=== PATIENT | female | born 1990 | race Caucasian/White ===

== ENCOUNTER 2017-04-24 18:12 | Emergency (ER) | payer OTHER ==
[~2017-04-24] VITALS: Ht 170.2 cm; Wt 53.6 kg
[2017-04-24 18:33] VITALS: TEMP 37.2; Ht 170.2 cm; Wt 53.6 kg
[2017-04-24] MEDS ORDERED: SODIUM CHLORIDE 0.9% 1000ML 1,000 ML IV ONE (19:45)
[2017-04-24] MEDS ORDERED: ONDANSETRON INJ 2 MG/ML 2 ML VIAL IV STA (19:45)
[2017-04-24] MEDS ORDERED: MoRPHine SULFATE 4 MG/ML 1 ML CARP\\VIAL IV STA (19:45)
--- NOTE | 2017-04-24 19:52 | EMERGENCY ROOM VISIT NOTE ---
History First contact with patient: 19:37 Chief Complaint: NAUSEA Stated Complaint: THROWING UP, OVARIES HURT, FEVER Nursing Triage Summary: Pt c/o vomiting since last night. Bilateral lower abdominal pain since this morning. LMP Mar 19. Hx Ovarian cysts. Denies urinary symptoms. Cough x a few days. Denies diarrhea. Nauseous, so not eating, drinking the last few days. History of Present Illness The patient is a 27 year old female who presents to the Emergency Room with complaints of lower abdominal pain that she describes as a sharp, stabbing sensation that started yesterday. She is also had nausea and vomiting. She has thrown up approximately 4 times. She also feels like she is running a fever. She did not take her temperature to home. She has been hot and then chilled. The patient has a history of ovarian cysts. She says that this pain feels similar. She denies any diarrhea. She is uncertain of her last bowel movement. She denies any sick contacts. She is currently sexually active with one partner. Last menstrual. Was March 19. Review of Systems 10 system review performed and negative unless noted in HPI or below Past Medical/Surgical History Otherwise healthy Social History Smoking Status: Never Smoker Housing Status: lives with roommate Occupation Status: [employer] Current/Historical Medications Scheduled Cetirizine (Zyrtec), 10 MG PO DAILY Ondasetron Odt (Zofran Odt), 4 MG SL Q6H Scheduled PRN Acetaminophen (Tylenol), 1,000 MG PO Q6 PRN for Headache or Pain Physical Exam Vital Signs Date Time Temp Pulse Resp B/P (MAP) Pulse Ox O2 Delivery O2 Flow Rate FiO2 04/24/17 22:51 98 16 95/75 99 04/24/17 22:08 98 14 98/57 99 Room Air 04/24/17 18:33 37.2 107 24 109/74 100 Room Air Physical Exam VITALS: Vitals are noted on the nurse's note and reviewed by myself. Vital signs stable. GENERAL: 27-year-old female, anxious and tearful. SKIN: The skin was without rashes, erythema, edema, or bruising. HEAD: Normocephalic atraumatic. MOUTH: Mucous membranes slightly dry NECK: Supple without nuchal rigidity. No lymphadenopathy. Cervical spine is nontender. No JVD. HEART: Regular rate and rhythm without murmurs gallops or rubs. LUNGS: Clear to auscultation bilaterally without wheezes, rales or rhonchi. No accessory muscle use. ABDOMEN: Positive bowel sounds x 4.Soft, mild tenderness to palpation in the left lower quadrant, without organomegaly. No guarding or rebound tenderness. MUSCULOSKELETAL: No muscle atrophy, erythema, or edema noted. Strength 5/5 throughout. NEURO: Patient was alert and oriented to person place and time. Normal sensation to touch. No focal neurological deficits. Medical Decision & Procedures ER Provider Diagnostic Interpretation: Pelvic ultrasound IMPRESSION: 1. Normal uterus and ovaries. 2. Small amount of pelvic free fluid which is likely physiologic. Chest/abdominal x-rays IMPRESSION: No acute cardiopulmonary process. No evidence for bowel obstruction. Small amount of well-formed stool within the colon. Laboratory Results 04/24/17 20:00 Red Blood Count 4.24, Mean Corpuscular Volume 87.7, Mean Corpuscular Hemoglobin 30.2, Mean Corpuscular Hemoglobin Concent 34.4, Mean Platelet Volume 9.9, Neutrophils (%) (Auto) 90.8, Lymphocytes (%) (Auto) 5.1, Monocytes (%) (Auto) 3.7, Eosinophils (%) (Auto) 0.0, Basophils (%) (Auto) 0.2, Neutrophils # (Auto) 4.67, Lymphocytes # (Auto) 0.26, Monocytes # (Auto) 0.19, Eosinophils # (Auto) 0.00, Basophils # (Auto) 0.01 04/24/17 20:00 Test 04/24/17 20:00 04/24/17 21:35 White Blood Count 5.14 K/uL (4.8-10.8) Red Blood Count 4.24 M/uL (4.2-5.4) Hemoglobin 12.8 g/dL (12.0-16.0) Hematocrit 37.2 % (37-47) Mean Corpuscular Volume 87.7 fL (80-100) Mean Corpuscular Hemoglobin 30.2 pg (25-34) Mean Corpuscular Hemoglobin Concent 34.4 g/dl (32-36) Platelet Count 143 K/uL (130-400) Mean Platelet Volume 9.9 fL (7.4-10.4) Neutrophils (%) (Auto) 90.8 % Lymphocytes (%) (Auto) 5.1 % Monocytes (%) (Auto) 3.7 % Eosinophils (%) (Auto) 0.0 % Basophils (%) (Auto) 0.2 % Neutrophils # (Auto) 4.67 K/uL (1.4-6.5) Lymphocytes # (Auto) 0.26 K/uL (1.2-3.4) Monocytes # (Auto) 0.19 K/uL (0.11-0.59) Eosinophils # (Auto) 0.00 K/uL (0-0.5) Basophils # (Auto) 0.01 K/uL (0-0.2) RDW Standard Deviation 41.4 fL (36.4-46.3) RDW Coefficient of Variation 12.8 % (11.5-14.5) Immature Granulocyte % (Auto) 0.2 % Immature Granulocyte # (Auto) 0.01 K/uL (0.00-0.02) Anion Gap 6.0 mmol/L (3-11) Est Creatinine Clear Calc Drug Dose 93.7 ml/min Estimated GFR () 123.5 Estimated GFR (Non- 106.6 BUN/Creatinine Ratio 10.1 (10-20) Calcium Level 8.6 mg/dl (8.5-10.1) Total Bilirubin 0.4 mg/dl (0.2-1) Aspartate Amino Transf (AST/SGOT) 17 U/L (15-37) Alanine Aminotransferase (ALT/SGPT) 20 U/L (12-78) Alkaline Phosphatase 47 U/L (45-117) Total Protein 7.6 gm/dl (6.4-8.2) Albumin 4.1 gm/dl (3.4-5.0) Globulin 3.5 gm/dl (2.5-4.0) Albumin/Globulin Ratio 1.2 (0.9-2) Human Chorionic Gonadotropin, Qual NEG (NEG) Urine Color YELLOW Urine Appearance CLEAR (CLEAR) Urine pH 6.5 (4.5-7.5) Urine Specific [place] 1.028 (1.000-1.030) Urine Protein NEG (NEG) Urine Glucose (UA) NEG (NEG) Urine Ketones 3+ (NEG) Urine Occult Blood NEG (NEG) Urine Nitrite NEG (NEG) Urine Bilirubin NEG (NEG) Urine Urobilinogen NEG (NEG) Urine Leukocyte Esterase NEG (NEG) Medications Administered Medications (Trade) Dose Ordered Sig/Bereket Route Start Time Stop Time Status Last Admin Dose Admin Sodium Chloride 1,000 ml @ 999 mls/hr Q1H1M ONCE IV 04/24/17 19:45 04/24/17 20:45 DC 04/24/17 20:00 999 MLS/HR Ondansetron HCl (Zofran Inj) 4 mg NOW STAT IV 04/24/17 19:45 04/24/17 19:48 DC 04/24/17 20:00 4 MG Morphine Sulfate (MoRPHine SULFATE INJ) 4 mg ONE STAT IV 04/24/17 19:45 04/24/17 19:48 DC 04/24/17 19:59 4 MG Ondansetron HCl (ZOFRAN ODT 4MG Home Pack) 1 homepack UD ONCE PO 04/24/17 22:45 04/24/17 22:46 DC 04/24/17 22:49 1 HOMEPACK ED Course Patient was seen and examined Vital signs including blood pressure were reviewed medications list was verified with patient Labs were obtained, and a saline lock was established She was medicated with morphine 4 mg IV and Zofran 4 mg IV. She was hydrated with 1 L of normal saline. Imaging was performed and reviewed The patient was reassessed and resting comfortably. She was given another bolus of 500 mL of normal saline. We discussed her workup. She voiced understanding. She was comfortable being discharged home. She was given a home pack of Zofran. I reviewed discharge instructions the patient. They voiced understanding and had no further questions. Medical Decision Differential diagnosis: Viral gastroenteritis, bacterial gastroenteritis, ovarian cyst, ovarian torsion, ectopic , PID, kidney stone, appendicitis This patient is a 27-year-old female that presents to emergency department with lower abdominal pain, nausea and vomiting. On exam, she was very anxious and tearful in appearance. Her lower abdomen was slightly tender. There is no guarding or rebound tenderness. Her workup reveals no leukocytosis. She is afebrile. I do not suspect an acute abdomen. A pelvic ultrasound was performed. No cysts were noted. She did have 3+ ketones in her urine likely from vomiting. She was well hydrated in the emergency department. The patient seemed very concerned that her period was late. I believe she was concerned about being . A serum was performed and negative. The patient had good symptomatic relief in the emergency department. I believe she is stable to be discharged home. She was encouraged to follow up closely with her primary care physician. She agrees to return to the emergency department with any new, worsening or concerning symptoms; especially, worsening abdominal pain, persistent vomiting or fever This chart was completed in part utilizing [employer] Speech Voice Recognition software. Attempts were made to minimize the grammatical errors, random word insertions, pronoun errors and incomplete sentences. Any formal questions or concerns about the content, text or information contained within the body of this dictation should be directly addressed to the provider for clarification. Medication Reconcilliation Current Medication List: was personally reviewed by me Blood Pressure Screening Patient's blood pressure: Normal blood pressure Impression Primary Impression: Vomiting Departure Information Dispostion Home / Self-Care Condition GOOD Prescriptions Ondasetron Odt (ZOFRAN ODT) 4 Mg Tab 4 MG SL Q6H for Nausea, #12 TAB Prov: Merari Juarez PA-C 04/24/17 Referrals No Doctor, Assigned (PCP) Patient Instructions ED Nausea Vomiting, [facility] Additional Instructions You were evaluated in the emergency department for vomiting and abdominal pain. An ultrasound did not show any signs of ovarian cysts. It is possible that you have a viral GI illness. Please follow a clear liquid diet tonight such as broth, water and Gatorade. If you are feeling better in the morning, advance to bland diet such as toast and crackers Please take Zofran 1 tab under the tongue every 6 hours as needed for nausea Ibuprofen 600 mg and/or Tylenol 1000 mg every 8 hours for pain You may also alternate these medications for more effective pain relief: Ibuprofen --4 HRS--> Tylenol --4 HRS--> ibuprofen --4 HRS--> Tylenol .... You have been examined and treated today on an emergency basis only. This is not a substitute for, or an effort to provide, complete comprehensive medical care. It is impossible to recognize and treat all injuries or illnesses in a single emergency department visit. It is therefore important that you follow up closely with [facility], your PCP, and/or your specialist(s). Call as soon as possible for an appointment. Do not hesitate to return to the emergency department with any new, worsening or concerning symptoms; especially, fever, persistent vomiting or worsening abdominal pain School Instructions Return To School: 1 day
[2017-04-24 20:13] LABS: BASO % 0.2 %; BASO ABS # 0.01 K/uL (0-0.2); HEMATOCRIT 37.2 % (37-47); HEMOGLOBIN 12.8 g/dL (12.0-16.0); IG# 0.01 K/uL (0.00-0.02); LYMPH % 5.1 %; LYMPH ABS # 0.26 K/uL (1.2-3.4); MEAN CELL VOLUME 87.7 fL (80-100); MEAN CORPUSCULAR HEMOGLOBIN 30.2 pg (25-34); MEAN CORPUSCULAR HGB CONC 34.4 g/dl (32-36); MEAN PLATELET VOLUME 9.9 fL (7.4-10.4); MONO % 3.7 %; MONO ABS # 0.19 K/uL (0.11-0.59); NEUT % 90.8 %; NEUT ABS # 4.67 K/uL (1.4-6.5); PLATELET COUNT 143 K/uL (130-400); RED CELL DISTRIBUTION WIDTH CV 12.8 % (11.5-14.5); RED CELL DISTRIBUTION WIDTH SD 41.4 fL (36.4-46.3); WHITE BLOOD COUNT 5.14 K/uL (4.8-10.8)
[2017-04-24 20:32] LABS: ALBUMIN 4.1 gm/dl (3.4-5.0); CALCIUM 8.6 mg/dl (8.5-10.1); CREATININE 0.77 mg/dl (0.60-1.20); POTASSIUM 3.5 mmol/L (3.5-5.1)
[2017-04-24 20:34] LABS: TOTAL PROTEIN 7.6 gm/dl (6.4-8.2)
--- NOTE | 2017-04-24 20:45 | DIAGNOSTIC IMAGING REPORT ---
CHEST AND ABDOMEN 2 VIEWS HISTORY: Generalized abdominal pain vomiting ? constipation COMPARISON: None. FINDINGS: The lungs are clear. The cardiomediastinal silhouette is within normal limits. There is no pneumoperitoneum or pneumatosis. The bowel gas pattern is unremarkable. No evidence for bowel obstruction. No pathologic calcifications. S-shaped scoliosis of the thoracolumbar spine. Small amount well-formed stool within the distal colon. IMPRESSION: No acute cardiopulmonary process. No evidence for bowel obstruction. Small amount of well-formed stool within the colon. Electronically signed by: Melchor Ralph M.D. 04/24/2017 8:44 PM Dictated Date/Time: 04/24/2017 8:42 PM
--- NOTE | 2017-04-24 22:01 | DIAGNOSTIC IMAGING REPORT ---
PELVIC ULTRASOUND, TRANSABDOMINAL AND TRANSVAGINAL HISTORY: Lower abdominal pain. Vomiting. COMPARISON: None. FINDINGS: Uterus: 6.5 x 4.3 x 3.1 cm. Endometrial stripe: 6 mm in thickness. Right ovary: Normal in size and demonstrates normal color flow. A 1.7 cm complex cyst which likely represents a corpus luteum. Left ovary: Normal in size and demonstrates normal color flow. Miscellaneous:Small amount of pelvic free fluid. IMPRESSION: 1. Normal uterus and ovaries. 2. Small amount of pelvic free fluid which is likely physiologic. Electronically signed by: Melchor Ralph M.D. 04/24/2017 10:00 PM Dictated Date/Time: 04/24/2017 9:58 PM
[2017-04-24] MEDS ORDERED: CETI10TA84 PO (22:11)
[2017-04-24] MEDS ORDERED: ACET-1256 PO (22:11)
[2017-04-24] MEDS ORDERED: ONDA4TAB10 SL (22:40)
[2017-04-24] MEDS ORDERED: ONDANSETRON HOME PACK 4MG OD TAB PO ONE (22:45)
[2017-04-24 22:51] VITALS: BP 95/75; PULSE 98; O2SAT 99
== END 2017-04-24 22:52 | disposition home or self-care (01) ==
LOC: C.EDB 18:14 → C.EDA 22:52
DX: R11.10 Vomiting, unspecified (principal)